=== PATIENT | female | born 1995 | race American Indian/Alaskan Native ===

== ENCOUNTER 2016-07-11 18:25 | Emergency (ER) | payer BC ==
[2016-07-11] MEDS ORDERED: AUGMENTIN 875 MG PO ONE (22:14)
[2016-07-11] MEDS ORDERED: TYLENOL #3 PO ONE (22:14)
[2016-07-11] MEDS ORDERED: BOOSTRIX IM ONE (22:15)
[2016-07-11] MEDS ORDERED: BACITRACIN (ED) OINT PACKET TP ONE (22:36)
--- NOTE | 2016-07-11 22:43 | Emergency Department Report ---
HPI - General Chief Complaint: Animal Bite Time Seen by Provider: 07/11/16 22:13 - HPI HPI: The patient is a 21-year-old female who presents for evaluation of pain to the right arm secondary to dog bite. The patient states that she was bitten on the right forearm and hand by Eusebio Ashby at 2 PM earlier today, greater than 8 hours prior to my evaluation, and has experienced constant mild-moderate pain, currently 3/10 in severity, to the site of her injury since, burning in quality , exacerbated with movement of the forearm and hand. ED Past Medical Hx - Past Medical History Previous Medical History?: No - Surgical History Past Surgical History?: No - Social History Smoking Status: Never Smoker Substance Use Type: None - Medications Home Medications: Home Medications Medication Instructions Recorded Confirmed Last Taken Type Amoxicillin/K Clav Tab [Augmentin 1 tab PO Q12HR #9 tab 07/11/16 Unknown Rx 875 mg] HYDROcodone/APAP 7.5-325 [[place] 1 each PO Q6HR PRN #10 tablet 07/11/16 Unknown Rx 7.5/325] Ibuprofen [Motrin] 800 mg PO Q8HR PRN #15 tablet 07/11/16 Unknown Rx ED Review of Systems ROS: Stated complaint: DOG BITE RT ARM /RT HAND Other details as noted in HPI Constitutional: denies: fever ENT: denies: throat or neck pain Respiratory: denies: cough, shortness of breath Cardiovascular: denies: chest pain Endocrine: denies unexplained weight loss or gain Gastrointestinal: denies: abdominal pain, nausea Genitourinary: denies: dysuria Musculoskeletal: reports right forearm and hand pain, denies: leg swelling Skin: denies: rash Neurological: denies: headache Hematological/Lymphatic: denies: easy bleeding or easy bruising Psych: denies sadness or hopelessness Physical Exam - Physical Exam Vital Signs: Vital Signs 07/11/16 18:30 Temperature 98.4 F Pulse Rate 88 Respiratory 18 Rate Blood Pressure 113/77 O2 Sat by Pulse 100 Oximetry Physical Exam: General: well-nourished, well-developed, no acute distress Head: Normocephalic, atraumatic Eyes: normal sclera ENT: Mucous membranes are pink and moist Neck: trachea midline, neck supple, No neck stiffness, no cervical adenopathy Respiratory: Breath sounds equal bilaterally, no wheezing, rales, or rhonchi Cardio: S1 and S2 present, no murmurs, rubs, gallops, capillary refill is brisk Abdomen: Normoactive bowel sounds, soft abdomen, no tenderness Musc: .5 cm puncture wound present to the right mediolateral right forearm, superficial bite to the lateral distal right palm, bleeding controlled, no surrounding erythema, swelling, warmth or fluctuance, distal sensation, motor function and pulses intact, compartments are soft and pliable, no signs of compartment syndrome Skin: No rash Neuro: no facial drooping, normal speech Psych: Normal affect ED Course Vital Signs 07/11/16 18:30 Temperature 98.4 F Pulse Rate 88 Respiratory 18 Rate Blood Pressure 113/77 O2 Sat by Pulse 100 Oximetry ED Medical Decision Making - Medical Decision Making The patient was seen and examined by myself. The patient given a tablet of Tylenol 3 for pain. The patient's wound is copiously irrigated. X-ray of the right forearm is obtained and is negative for foreign body, fracture, dislocation. The patient given a tablet of Augmentin for prophylaxis of infection. The patient is given a tetanus immunization. The patient declines rabies immunization. The patient was reevaluated and reported that their symptoms were improved. The patient is stable for discharge with outpatient follow-up. The patient is given follow-up and return instructions. The patient expressed understanding and agreed with the plan. The patient is discharged in stable condition. Critical care attestation.: If time is entered above; I have spent that time in minutes in the direct care of this critically ill patient, excluding procedure time. ED Disposition Clinical Impression: Dog bite of right forearm Qualifiers: Encounter type: initial encounter Qualified Code(s): S51.851A - Open bite of right forearm, initial encounter; W54.0XXA - Bitten by dog, initial encounter Disposition: DISCHARGED TO HOME OR SELFCARE Is pt being admited?: No Does the pt Need Aspirin: No Condition: Stable Instructions: Animal Bite (ED), Acute Wound Care (ED) Prescriptions: Amoxicillin/K Clav Tab [Augmentin 875 mg] 1 tab PO Q12HR #9 tab HYDROcodone/APAP 7.5-325 [[place] 7.5/325] 1 each PO Q6HR PRN #10 tablet PRN Reason: Pain Ibuprofen [Motrin] 800 mg PO Q8HR PRN #15 tablet PRN Reason: Pain Referrals: PRIMARY CARE, [Primary Care Provider] - 3-5 Days Time of Disposition: 22:39
[2016-07-11] MEDS ORDERED: TRIPLE ANTIBIOTIC TP ONE ×2 (23:04→23:28)
[2016-07-11] MEDS: TRIPLE ANTIBIOTIC TP ONE ×2 (23:32→23:46)
[2016-07-11 23:48] VITALS: BP 118/70
--- NOTE | 2016-07-12 09:04 | XRay Report ---
RIGHT FOREARM: History: Right forearm pain, dog bite. AP and lateral views of the forearm demonstrate normal mineralization and contours for this patient's age. No destructive changes are noted and the adjacent soft tissues are normal. IMPRESSION: Normal right forearm.
== END 2016-07-11 23:48 | disposition home or self-care (01) ==
LOC: ED 18:25
DX: S51.851A Open bite of right forearm, initial encounter (principal); W54.0XXA Bitten by dog, initial encounter; Y93.89 Activity, other specified; Y92.89 Other specified places as the place of occurrence of the external cause; Y99.8 Other external cause status
CPT/HCPCS: 90471; 90715; A6250